=== PATIENT | male | born 1985 | race Caucasian/White ===

== ENCOUNTER 2018-03-02 12:51 | Observation (INO) | payer OTHER ==
[2018-03-02] MEDS ORDERED: NS 1,000 ML IV ONE (13:22)
--- NOTE | 2018-03-02 13:24 | EDPHY ---
H & P Stated Complaint: RLQ pain and discomfort when voiding for 4 days. Time Seen by Provider: 03/02/18 13:09 HPI/ROS: CHIEF COMPLAINT: Right lower quadrant pain HISTORY OF PRESENT ILLNESS: The patient is a 32-year-old man who comes to the emergency department complaining of right lower quadrant pain radiating down into his epididymis. He states that this began about 3 days ago. No nausea vomiting. He did eat today at lunch. No fever. No risk for STD. He does have some slight pain in the lower abdomen and epididymis when he urinates. REVIEW OF SYSTEMS: Constitutional: denies: chills, fever, recent illness, recent injury EENTM: denies: blurred vision, double vision, nose congestion Respiratory: denies: cough, shortness of breath Cardiac: denies: chest pain, irregular heart rate, lightheadedness, palpitations Gastrointestinal/Abdominal: See HPI Genitourinary: See HPI Musculoskeletal: denies: joint pain, muscle pain Skin: denies: lesions, rash, jaundice, bruising Neurological: denies: headache, numbness, paresthesia, tingling, dizziness, weakness Hematologic/Lymphatic: denies: blood clots, easy bleeding, easy bruising Immunologic/allergic: denies: HIV/AIDS, transplant EXAM: GENERAL: Well-appearing, well-nourished and in no acute distress. HEAD: Atraumatic, normocephalic. EYES: Pupils equal round and reactive to light, extraocular movements intact, sclera anicteric, conjunctiva are normal. ENT: TMs normal, nares patent, oropharynx clear without exudates. Moist mucous membranes. NECK: Normal range of motion, supple without lymphadenopathy or JVD. LUNGS: Breath sounds clear to auscultation bilaterally and equal. No wheezes rales or rhonchi. HEART: Regular rate and rhythm without murmurs, rubs or gallops. ABDOMEN: Right lower quadrant tenderness, no guarding, normoactive bowel sounds. No guarding, no rebound. No masses appreciated. Some slight tenderness to the right epididymis, no swelling, no testicular tenderness. No penile drainage or erythema. BACK: No CVA tenderness, no spinal tenderness, step-offs or deformities EXTREMITIES: Normal range of motion, no pitting or edema. No clubbing or cyanosis. NEUROLOGICAL: Cranial nerves II through XII grossly intact. Normal speech, normal gait. 5/5 strength, normal movement in all extremities, normal sensation PSYCH: Normal mood, normal affect. SKIN: Warm, dry, normal turgor, no visible rashes or lesions. Source: Patient Exam Limitations: No limitations - Personal History Current Tetanus Diphtheria and Acellular Pertussis (TDAP): Yes - Medical/Surgical History Hx Asthma: Yes Hx Chronic Respiratory Disease: No Hx Diabetes: No Hx Cardiac Disease: No Hx Renal Disease: No Hx Cirrhosis: No Hx Alcoholism: No Hx HIV/AIDS: No Hx Splenectomy or Spleen Trauma: No Other PMH: Asthma. - Family History Significant Family History: No pertinent family hx - Social History Smoking Status: Never smoked Alcohol Use: Sober Drug Use: None Constitutional: Initial Vital Signs Temperature (C) 37 C 03/02/18 12:53 Heart Rate 75 03/02/18 12:53 Respiratory Rate 16 03/02/18 12:53 Blood Pressure 117/68 03/02/18 12:53 O2 Sat (%) 98 03/02/18 12:53 O2 Delivery Mode Room Air Allergies/Adverse Reactions: Penicillins Allergy (Verified 03/02/18 12:58) Home Medications: Medication Instructions Recorded Escitalopram Oxalate [Lexapro] 20 mg PO DAILY 03/02/18 Herbals/Supplements -Info Only 1 ea PO DAILY 03/02/18 Omeprazole 20 mg PO DAILY 03/02/18 Medical Decision Making - Diagnostics Imaging: Discussed imaging studies w/ tank truck driver Radiologist ED Course/Re-evaluation: We discussed the CT results. The patient understands. I have paged surgery for consultation. 2:45 p.m. I spoke with Dr. Courtney who will consult and likely operate this evening or in the morning because the patient ate at noon. Antibiotics have been ordered. Differential Diagnosis: Partial list of the Differential diagnosis considered include but were not limited to; appendicitis, epididymitis, kidney stone, urinary tract infection and although unlikely based on the history and physical exam, I also considered torsion, aneurysm, hernia. - Data Points Laboratory Results: Laboratory Results 03/02/18 13:05 03/02/18 13:05 Medications Given: Acetaminophen (Tylenol) 1,000 mg PO Q8H SERVANDO Stop: 08/29/18 15:29 Last Admin: 03/03/18 07:31 Dose: 1,000 mg Escitalopram Oxalate (Lexapro) 20 mg PO DAILY SERVANDO Stop: 08/30/18 08:59 Last Admin: 03/03/18 07:37 Dose: 20 mg Lactated Ringer's (Lr) 1,000 mls @ 100 mls/hr IV CONT SERVANDO Stop: 08/29/18 15:29 Last Admin: 03/03/18 00:04 Dose: 1,000 mls Metronidazole/Sodium Chloride (Flagyl 500 Mg (Premix)) 100 mls @ 100 mls/hr IV Q8HRS SERVANDO PRN Reason: Protocol Stop: 03/03/18 14:59 Last Admin: 03/03/18 05:09 Dose: 100 mls Ketorolac Tromethamine (Toradol) 30 mg IVP Q6HRS [facility] Stop: 03/07/18 17:59 Last Admin: 03/03/18 05:09 Dose: 30 mg Pantoprazole Sodium (Protonix) 40 mg PO BID SERVANDO Stop: 08/29/18 20:59 Last Admin: 03/03/18 07:38 Dose: 40 mg Discontinued Medications Cefazolin Sodium (Ancef Syringe) Confirm Administered Dose 1 gm .ROUTE .STK-MED ONE Stop: 03/02/18 21:28 Last Admin: 03/02/18 21:56 Dose: 1 gm Heparin Sodium (Porcine) (Heparin Sc Injection) Confirm Administered Dose 5,000 unit .ROUTE .STK-MED ONE Stop: 03/02/18 21:28 Last Admin: 03/02/18 21:56 Dose: 5,000 unit Sodium Chloride (Ns) 1,000 mls @ 0 mls/hr IV EDNOW ONE; Wide Open PRN Reason: Protocol Stop: 03/02/18 13:23 Last Admin: 03/02/18 13:50 Dose: 1,000 mls Ceftriaxone Sodium/Dextrose (Rocephin 1 Gm (Premix)) 50 mls @ 100 mls/hr IV EDNOW ONE PRN Reason: Protocol Stop: 03/02/18 15:08 Last Admin: 03/02/18 15:08 Dose: 50 mls Metronidazole/Sodium Chloride (Flagyl 500 Mg (Premix)) 100 mls @ 100 mls/hr IV EDNOW ONE PRN Reason: Protocol Stop: 03/02/18 15:42 Last Admin: 03/02/18 15:14 Dose: 100 mls Ceftriaxone Sodium 2 gm/ (Sterile Water) 20 mls @ 300 mls/hr IV DAILY SERVANDO PRN Reason: Protocol Stop: 03/03/18 09:03 Last Admin: 03/03/18 09:39 Dose: 20 mls Midazolam HCl (Versed) 2 mg IVP ONCE ONE Stop: 03/02/18 20:22 Last Admin: 03/02/18 21:02 Dose: 2 mg Departure - Departure Disposition: [facility] Acute Clinical Impression: Appendicitis Qualifiers: Appendicitis type: acute appendicitis Acute appendicitis type: with localized peritonitis Qualified Code(s): K35.3 - Acute appendicitis with localized peritonitis Condition: Fair
[2018-03-02 13:29] LABS: PLATELET COUNT 177 10^3/uL (150-400)
[2018-03-02] MEDS ORDERED: IOPAMIDOL (ISOVUE-300) 100 ML BTL ONE (13:48)
[2018-03-02] MEDS ORDERED: ONDANSETRON 4 MG/2 ML VIAL IVP PRN ×2 (15:23→22:40)
[2018-03-02] MEDS ORDERED: HYDROmorphone HCL/NS 0.5 MG/ML SYR IVP PRN ×2 (15:23→22:40)
[2018-03-02] MEDS: ACETAMINOPHEN 500 MG TAB PO SCH ×2 (16:41→23:59)
[2018-03-02] MEDS: LR 1,000 ML IV SCH (16:46)
[2018-03-02] MEDS: KETOROLAC 15 MG/1 ML SDV IVP SCH ×2 (17:09→23:59)
--- NOTE | 2018-03-02 20:19 | PDANEPAE ---
ANE History of Present Illness acute appendicitis ANE Past Medical History - Cardiovascular History Hx Hypertension: No Hx Arrhythmias: No Hx Chest Pain: No Hx Coronary Artery / Peripheral Vascular Disease: No Hx CHF / Valvular Disease: No Hx Palpitations: No - Pulmonary History Hx COPD: No Hx Asthma/Reactive Airway Disease: Yes Hx Recent Upper Respiratory Infection: No Hx Oxygen in Use at Home: No Hx Sleep Apnea: No Sleep Apnea Screening Result - Last Documented: Negative - Endocrine History Hx Diabetes: No Hypothyroid: No Hyperthyroid: No - Renal History Hx Renal Disorders: No - Liver History Hx Hepatic Disorders: No - Neurological & Psychiatric Hx Hx Neurological and Psychiatric Disorders: No - GI History GERD: no - Chronic Pain History Chronic Pain: No ANE Review of Systems Review of systems is: negative Review of Systems: - Exercise capacity Exercise capacity: >=4 METS - Systems Gastrointestinal: Reports: abdominal pain ANE Patient History - Allergies Allergies/Adverse Reactions: Penicillins Allergy (Verified 03/02/18 12:58) - Home Medications Home Medications: Escitalopram Oxalate [Lexapro] 20 mg PO DAILY 03/02/18 [Last Taken 03/02/18] Herbals/Supplements -Info Only 1 ea PO DAILY 03/02/18 [Last Taken Unknown] Omeprazole 20 mg PO DAILY 03/02/18 [Last Taken 03/02/18] - NPO status NPO Status: no food or drink >8 hours NPO Since - Liquids (Date): 03/02/18 NPO Since - Liquids (Time): 12:00 NPO Since - Solids (Date): 03/02/18 NPO Since - Solids (Time): 12:00 - Anes Hx Anes Hx: no prior problems - Smoking Hx Smoking Status: Never smoked Marijuana use: No - Alcohol Use Alcohol Use: Sober - Family Anes Hx Family Anes Hx: none ANE Labs/Vital Signs - Labs Result Diagrams: 03/02/18 13:05 03/02/18 13:05 - Vital Signs Vital Signs: reviewed preoperatively; see RN documention for details Blood Pressure: 120/71 Heart Rate: 67 Respiratory Rate: 18 O2 Sat (%): 95 Height: 180.34 cm Weight: 70.307 kg ANE Physical Exam - Airway Neck exam: FROM Mallampati Score: Class 2 - Pulmonary Pulmonary: no respiratory distress - Cardiovascular Cardiovascular: regular rate and rhythym - ASA Status ASA Status: II ANE Anesthesia Plan Anesthesia Plan: general endotracheal anesthesia
[2018-03-02] MEDS ORDERED: MIDAZOLAM 2 MG/2 ML VIAL IVP ONE (20:21)
[2018-03-02] MEDS ORDERED: LIDOCAINE 2% 5 ML SDV ONE (20:38)
[2018-03-02] MEDS ORDERED: KETOROLAC 30 MG/1 ML SDV ONE (20:38)
[2018-03-02] MEDS ORDERED: ONDANSETRON 4 MG/2 ML VIAL ONE (20:38)
[2018-03-02] MEDS ORDERED: DEXAMETHASONE 4 MG/ML VIAL ONE (20:38)
[2018-03-02] MEDS ORDERED: ROCURONIUM 50 MG/5 ML VIAL ONE (20:38)
[2018-03-02] MEDS ORDERED: fentaNYL 100 MCG/2 ML INJ ONE ×2 (20:38→21:57)
[2018-03-02] MEDS ORDERED: PROPOFOL 200 MG/20 ML VIAL ONE (20:38)
--- NOTE | 2018-03-02 21:26 | GHP ---
[f rep st] HISTORY AND PHYSICAL DATE OF ADMISSION: 03/02/2018 ADMITTING DIAGNOSES: 1. Appendicitis. 2. Constipation. HISTORY: The patient is a 32-year-old male who had pain starting 7 days ago, initially sharp, in the right lower quadrant. It began radiating to his testicles several days ago and he came in thinking he had a kidney stone. He had a loss of appetite approximately 7 days ago, has slowly gotten better. He was moving his bowels every day or every other day. He had nausea 1 day ago. He has not had a recent upper respiratory tract infection or diarrhea. He has had no prior intraabdominal similar pro cess. He has had no prior abdominal surgery. There is no history of inflammatory bowel disease. He does have an irritable bowel syndrome. There is no history of recent travel or antibiotics in the l ast 6 months. REVIEW OF SYSTEMS: He does not smoke. He does not drink. ALLERGIES: He has a possible allergy to penicillin. He is unsure how that is manifested. MEDICATIONS: He takes Lexapro daily for anxiety, as well as zejg-lyu-pmliter medications. PAST SURGICAL HISTORY: He has had no prior surgery. PAST MEDICAL HISTORY: There is no history of rheumatic fever, tuberculosis, hepatitis, or transfusio ns. REVIEW OF SYSTEMS: He has exercise-induced asthma and uses an albuterol inhaler approximately 3 or 4 times a year. He does have a constant diversion of irritable bowel syndrome. He has started taking Metamucil. He does avoid constipating foods further and limits on his activities. No history of st eroid use. PHYSICAL EXAMINATION: GENERAL: He is awake, alert, and in mild discomfort. NEUROLOGIC: He is orie nted to person, place, and time. GCS is 15. There are no focal lateralizing neurologic findings. L YMPHATICS: There is no cervical, supraclavicular, axillary, or inguinal lymphadenopathy. NECK: The re is no thyroid enlargement. No carotid bruits. BACK: Unremarkable. LUNGS: Clear to auscultation . CARDIAC: Shows S1, S2 to be normal with normal split of S2 without murmurs, rubs, or gallops. AB DOMEN: Shows hypoactive bowel sounds. Psoas and obturator signs are negative. DIAGNOSTIC STUDIES: CT scan shows a great deal of constipation. It shows appendix at 12 mm with enh ancing wall and mild periappendiceal stranding. It also shows advanced constipation. LABORATORY DATA: His white count is 5.3, 57% neutrophils, hematocrit is 48, his platelet count is 17 7. 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 He is afebrile. IMPRESSION: This patient has radiographic signs and symptoms of appendicitis. His location of pain, which is in the right lower quadrant, is 2 on a scale to 10. His psoas and obturator signs are nega tive. To palpation, his pain is 1/10 in the left upper quadrant, the mid abdomen, left lower quadran t, epigastrium, periumbilical region, suprapubic and right upper quadrant, but is 2 in the right mid abdomen, 2 in the right lower quadrant. He has hypoactive bowel sounds. PLAN: I will plan a laparoscopic exploration. The patient understands the planned procedure and wis hes to proceed as outlined. /[id number]/MODL
[2018-03-02] MEDS ORDERED: ceFAZolin 1 GM/5 ML SYR ONE (21:27)
[2018-03-02] MEDS ORDERED: HEPARIN 5,000 UNIT/0.5 ML SYR ONE (21:27)
[2018-03-02] MEDS ORDERED: SUGAMMADEX SODIUM 200 MG/2 ML VIAL IVP ONE (22:12)
[2018-03-02] MEDS ORDERED: fentaNYL 100 MCG/2 ML INJ IVP PRN (22:40)
[2018-03-02] MEDS ORDERED: MEPERIDINE 25 MG/ML SYR IVP PRN (22:40)
[2018-03-02] MEDS ORDERED: ALBUTEROL 3 ML DEYVIAL IH PRN (22:40)
[2018-03-02] MEDS ORDERED: PROMETHAZINE HCL 25 MG/ML INJ IVP PRN (22:40)
[2018-03-02] MEDS ORDERED: NALOXONE HCL 0.4 MG/ML INJ IVP PRN (22:40)
--- NOTE | 2018-03-02 22:40 | POSTANESTH ---
Post Anesthetic Evaluation Cardiovascular Status: Normal, Stable Respiratory Status: Normal, Stable Level of Consciousness/Mental Status: Can Participate in Eval Pain Control: Adequate, Prn Tx Ordered Nausea/Vomiting Control: Adequate, Prn Tx Ordered Complications Possibly Related to Anesthesia: None Noted
--- NOTE | 2018-03-02 22:42 | POSTOPPROG ---
Post Op Note Date of Operation: 03/02/18 Surgeon: Marcelo Courtney Anesthesia: GET(General Endotracheal) Pre-op Diagnosis: acute and chronic appendicitis Post-op Diagnosis: acute and chronic appendicitis - unruptured Indication: acute and chronic appendicitis Procedure: Laparoscopic appendectomy Findings: acute and chronic appendicitis - unruptured Inf/Abcess present in the surg proc area at time of surgery?: Yes Depth: Deep Incisional (Fascial) EBL: Minimal Total fluids administered: 700 Complications: Inflammatory mass between appendix and cecum was carefully dissected. A small colotomy was made and closed. The stapled cecal resection with the appendix closed the enterotomy. Specimen(s): Appendix, periappendiceal nodes
[2018-03-02] MEDS: PANTOPRAZOLE SODIUM 40 MG TAB PO SCH (23:59)
[2018-03-03] MEDS: LR 1,000 ML IV SCH (00:04)
--- NOTE | 2018-03-03 01:11 | GOP ---
[f rep st] OPERATIVE REPORT DATE OF OPERATION: 03/02/2018 SURGEON: Marcelo Courtney MD PREOPERATIVE DIAGNOSIS: Acute and chronic appendicitis. POSTOPERATIVE DIAGNOSIS: Acute and chronic unruptured appendicitis with inflammatory changes. PROCEDURE PERFORMED: Laparoscopic appendectomy. FINDINGS: Acute and chronic unruptured appendicitis with inflammatory changes. INDICATIONS: Acute and chronic appendicitis. DESCRIPTION OF PROCEDURE: The patient was placed on the operating table in supine position. After i nduction of adequate general endotracheal anesthesia, the abdomen was carefully clipped, prepped, and draped. A curvilinear incision was made at the umbilicus. This was deepened with electrocautery an d a spreading technique to expose the anterior rectus sheath bilaterally. The anterior rectus sheath was elevated between Allis clamps and incised in the midline. A pursestring of #0 PDS was placed. The peritoneum was entered. An 11/12 disposable Ari trocar was placed. Intra-abdominal insufflat ion was carried out to 15 mmHg high flow. A 5 mm port was placed in the left lower quadrant and a 2n d one was placed in the suprapubic position. There was no fluid in the pelvis. There was a distinct inflammatory mass in the right lower quadrant consistent with acute on chronic appendicitis. A slow and tedious dissection was carried out. The cecum is adherent directly to the appendix and in the course of the dissection, a small opening was made in the cecum. No spillage occurred. The kevin endix had been cleared circumferentially. There were multiple periappendiceal lymph nodes, which wer e taken as a separate specimen. A 3rd 5 mm port was placed to the right of midline. This was used t o grasp the opening in the cecum and hold it closed. The 60 mm Endo-SHAUN powered stapler was used to transect the cecum. Three applications had to be used to transect the cecum and resect the area of p erforation. This resulted in excellent closure. The resected section of cecum and lymph nodes were taken as a 1st specimen in EndoCatch bag. Lymph nodes were sent as separate specimen. A 2nd EndoCat ch bag was used to deliver the enlarged inflamed appendix, which had to be brought out in pieces from the EndoCatch bag as it was partially delivered through the umbilicus. A ring forceps had to be use d. Pneumoperitoneum was re-established. Irrigation was carried out. An excellent staple line was ident ified. Irrigation with heparin and Ancef-containing irrigant was used. A 10 flat JUAN PABLO drain was place d in the pelvis. This was let out through the left lower quadrant port site. The ports were removed under direct vision. Pneumoperitoneum was released. Inverted simple suture o f #0 PDS was placed in the midpoint of the fascial incision and tied. The pursestring was now tied. The subcutaneous tissue was well irrigated. Hemostasis was assured. Inverted simple sutures of #4- 0 Vicryl used to close all incisions. Mastisol and Steri-Strips were placed. Band-Aids were positio jenny. Note, the drain was secured with a 3-0 silk suture. A drain dressing was placed. The patient tolerated the procedure well, and was transferred to recovery in stable and satisfactory condition. /[id number]/MODL
[2018-03-03] MEDS: KETOROLAC 15 MG/1 ML SDV IVP SCH ×3 (05:09→18:08)
[2018-03-03] MEDS: ACETAMINOPHEN 500 MG TAB PO SCH ×2 (07:31→16:42)
[2018-03-03] MEDS: ESCITALOPRAM OXALATE 10 MG TAB PO SCH (07:37)
[2018-03-03] MEDS: PANTOPRAZOLE SODIUM 40 MG TAB PO SCH ×2 (07:38→19:55)
[2018-03-03] MEDS ORDERED: cefTRIAXone 2 GM in STERILE WATER INJ 20 ML IV SCH (09:00)
--- NOTE | 2018-03-03 09:18 | ASMTCASEMG ---
Living Arrangements What is your living Answers: Alone arrangement? Who do you live with? Type Of Residence What kind of residence do Answers: House you live in? Discharge Plan Comments Coordination Status Comments Notes: Pt is a 32 y/o man admitted for appendicitis and constipation. Pt will most likely d/c independent when medically stable. No therapies ordered at this time. CM available for changes. Plan: Independent Date Signed: 03/03/2018 09:17 AM Electronically Signed By:ARIEL Russo
--- NOTE | 2018-03-03 14:42 | SOAPPROG ---
SOAP Progress Note Assessment/Plan: Assessment/Plan: 32yo M POD#1 s/p lap appy Pain controlled Ambulating Tolerating clears - will advance Passing flatus JUAN PABLO to suction IV antibiotics - will transition to PO upon discharge Dispo: home later today or tomorrow am if pain controlled, tolerating regular diet S: feeling well. No major complaints. Pain at incisions but no deep abdominal pain. No fevers. Tolerating clears without NVD O: laying in bed, comfortable, NAD No increased WOB +BS, abd soft,nondistended. Nontender. Bandages in place JUAN PABLO with scant serosanguinous drainage Objective: Vital Signs Temp Pulse Resp BP Pulse Ox 37.3 C 84 18 117/67 93 03/03/18 10:44 03/03/18 10:44 03/03/18 10:44 03/03/18 10:44 03/03/18 10:44 03/02/18 03/03/18 03/04/18 05:59 05:59 05:59 Intake Total 3592 Output Total 714 20 Balance 2878 -20 ICD10 Worksheet Patient Problems: Problems Problem Status Onset Appendicitis Acute
--- NOTE | 2018-03-03 16:26 | SOAPPROG ---
SOAP Progress Note Assessment/Plan: Assessment: seen this am with pa--- see her note seen this pm/ improving, afebrile, minimal drainage, tolerating clears abd soft, nontender, +bs, wounds ok chest clear cor rr Plan:advance diet/ home in am 03/03/18 16:24 Objective: Vital Signs Temp Pulse Resp BP Pulse Ox 37.2 C 80 18 101/52 L 94 03/03/18 14:56 03/03/18 14:56 03/03/18 14:56 03/03/18 14:56 03/03/18 14:56 03/02/18 03/03/18 03/04/18 05:59 05:59 05:59 Intake Total 3592 Output Total 714 20 Balance 2878 -20 ICD10 Worksheet Patient Problems: Problems Problem Status Onset Appendicitis Acute
[2018-03-03] MEDS ORDERED: MAGNESIUM HYDROXIDE 30 ML UDCUP PO PRN (19:45)
[2018-03-03] MEDS ORDERED: BISACODYL 10 MG SUPP PR PRN (19:45)
[2018-03-03] MEDS ORDERED: LACTULOSE 20 GM/30 ML UDCUP PO PRN (19:45)
[2018-03-03] MEDS ORDERED: POLYETHYLENE GLYCOL 3350 17 GM PKT PO PRN (19:45)
[2018-03-03] MEDS: SENNOSIDES/DOCUSATE SODIUM TAB PO SCH (19:55)
[2018-03-04] MEDS: ACETAMINOPHEN 500 MG TAB PO SCH ×2 (01:40→04:17)
[2018-03-04] MEDS: KETOROLAC 15 MG/1 ML SDV IVP SCH ×3 (01:40→09:15)
[2018-03-04] MEDS: ESCITALOPRAM OXALATE 10 MG TAB PO SCH (08:11)
[2018-03-04] MEDS: SENNOSIDES/DOCUSATE SODIUM TAB PO SCH (08:11)
[2018-03-04] MEDS: PANTOPRAZOLE SODIUM 40 MG TAB PO SCH (08:11)
--- NOTE | 2018-03-04 09:47 | SOAPPROG ---
SOAP Progress Note Assessment/Plan: Assessment: 32 y/o M s/p lap appy S: Doing well. Eager to go home. Denies pain. Passing flatus, but no BM yet O: Alert Afebrile RRR No increased WOB Abdomen: soft, nontender, +BS Plan: Discharge home today. Change dressings as needed. Ok to shower. Follow up in 2 weeks. 03/04/18 09:44 Objective: Vital Signs Temp Pulse Resp BP Pulse Ox 36.9 C 67 16 111/51 L 95 03/04/18 08:00 03/04/18 08:00 03/04/18 08:00 03/04/18 08:00 03/04/18 08:00 03/03/18 03/04/18 03/05/18 05:59 05:59 05:59 Intake Total 3592 400 Output Total 714 20 30 Balance 2878 380 -30 ICD10 Worksheet Patient Problems: Problems Problem Status Onset Appendicitis Acute
[2018-03-04 11:02] VITALS: BP 108/59
== END 2018-03-04 11:51 | disposition home or self-care (01) ==
LOC: F1N 16:02 → F3E 23:28
PROVIDERS: ADMIT Surgery; ATTEND Surgery
DX: K35.80 Unspecified acute appendicitis (principal); K36 Other appendicitis; K59.00 Constipation, unspecified; I88.9 Nonspecific lymphadenitis, unspecified; E86.9 Volume depletion, unspecified; J45.909 Unspecified asthma, uncomplicated; Z88.0 Allergy status to penicillin
CPT/HCPCS: 38570; 44970; 74177; 96361; 96374; 96375; 99285; G0378; J0696; J1100; J1644; J1885; J2250; J2405; J2704; J3010; Q9967